=== PATIENT | male | born 1995 | race Caucasian/White ===

== ENCOUNTER 2019-03-07 02:13 | Emergency (ER) | payer OTHER ==
[2019-03-07] MEDS ORDERED: Acetaminophen 500 MG Tab PO ONE (02:36)
--- NOTE | 2019-03-07 02:36 | EDM.PDOC ---
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 He says that about a week ago he started having body aches and feeling like he was getting something but did not really have any large symptoms until the last 24 hours with a cough sore throat and increased body aches. He says he felt hot but he does not have a thermometer to take his temperature. He has been using [id number] Theraflu. He does not have a local provider but denies any pre-existing medical problems. He says he has been pushing fluids and his urine has been very clear and he has had no diarrhea is no chest pain shortness of breath or abdominal pain. The patient says he did have a tonsillectomy and adenoidectomy as a child Review of systems: As per history of present illness and below otherwise all systems reviewed and negative. Past medical history: As per history of present illness and as reviewed below otherwise noncontributory. Surgical history: As per history of present illness and as reviewed below otherwise noncontributory. Social history: No reported history of drug or alcohol abuse. Family history: As per history of present illness and as reviewed below otherwise noncontributory. Physical exam: HEENT: Atraumatic, normocephalic, pupils reactive, negative for conjunctival pallor or scleral icterus, mucous membranes moist, throat clear of exudates but there is posterior oropharyngeal erythema, there is no cervical adenopathy or nuchal rigidity, neck supple, nontender, trachea midline. Lungs: Clear to auscultation, breath sounds equal bilaterally, chest nontender. No wheezing stridor or work of breathing Heart: S1S2, regular rhythm and slightly tachycardic rate, my evaluation no overt murmurs Abdomen: Soft, nondistended, nontender. Negative for masses or hepatosplenomegaly. NABS Pelvis: Deferred Genitourinary: Deferred. Rectal: Deferred. Extremities: Atraumatic, no edema full range of motion Neurovascular unremarkable. Neuro: Awake, alert, oriented. Cranial nerves II through XII unremarkable. Cerebellum unremarkable. Motor and sensory unremarkable throughout. Exam nonfocal. Diagnostics: Influenza RSV Therapeutics: Tylenol Impression: Viral illness Definitive disposition and diagnosis as appropriate pending reevaluation and review of above. Generalized Pain Score (Numeric/FACES): 4 - Related Data Allergies Allergy/AdvReac Type Severity Reaction Status Date / Time No Known Allergies Allergy Verified 03/07/19 02:21 Home Meds: Home Meds . [No Known Home Meds] 03/07/19 [History] Past Medical History Cardiovascular History: Reports: None Respiratory History: Reports: None Gastrointestinal History: Reports: Irritable Bowel Syndrome Psychiatric History: Reports: Anxiety - Past Surgical History HEENT Surgical History: Reports: Adenoidectomy, Tonsillectomy Social & Family History - Tobacco Use Smoking Status *Q: Current Every Day Smoker Years of Tobacco use: 8 Packs/Tins Daily: 1 - Recreational Drug Use Recreational Drug Use: Yes ED ROS GENERAL - Review of Systems Review Of Systems: ROS reveals no pertinent complaints other than HPI. ED EXAM, GENERAL - Physical Exam Exam: See Below (See dictation) Course - Vital Signs Last Recorded V/S: Last Vital Signs Temp 38.2 C H 03/07/19 02:43 Pulse 112 H 03/07/19 02:17 Resp BP 139/78 03/07/19 02:17 Pulse Ox 95 03/07/19 02:17 - Orders/Labs/Meds Orders: Active Orders 24 hr Category Date Time Status CULTURE STREP A CONFIRMATION [] Stat Lab 03/07/19 02:30 Results STREP SCRN A RAPID W CULT CONF [] Stat Lab 03/07/19 02:30 Results Meds: Medications Discontinued Medications Generic Name Dose Route Start Last Admin Trade Name Freq PRN Reason Stop Dose Admin Acetaminophen 1,000 mg 03/07/19 02:36 03/07/19 02:43 Tylenol Extra Strength PO 03/07/19 02:37 1,000 mg ONETIME ONE Administration Departure - Departure Time of Disposition: 03:02 Disposition: Home, Self-Care 01 Condition: Good Clinical Impression: Viral illness - Discharge Information Referrals: PCP,None [Primary Care Provider] - Forms: ED Department Discharge Additional Instructions: The following information is given to patients seen in the emergency department who are being discharged to home. This information is to outline your options for follow-up care. We provide all patients seen in our emergency department with a follow-up referral. The need for follow-up, as well as the timing and circumstances, are variable depending upon the specifics of your emergency department visit. If you don't have a primary care physician on staff, we will provide you with a referral. We always advise you to contact your personal physician following an emergency department visit to inform them of the circumstance of the visit and for follow-up with them and/or the need for any referrals to a consulting specialist. The emergency department will also refer you to a specialist when appropriate. This referral assures that you have the opportunity for followup care with a specialist. All of these measure are taken in an effort to provide you with optimal care, which includes your followup. Under all circumstances we always encourage you to contact your private physician who remains a resource for coordinating your care. When calling for followup care, please make the office aware that this follow-up is from your recent emergency room visit. If for any reason you are refused follow-up, please contact the [facility] emergency department at and ask to speak to the emergency department charge nurse. [facility] Primary care- Internal Medicine and Family [address] [address] Push hydration such as water juices and Gatorade and use [id number] Tylenol or ibuprofen for fever and body aches. Please call and schedule a follow -up appointment in our clinic for reevaluation and further care using the resources given to above. Return to ER as needed and as discussed - My Orders Last 24 Hours: My Active Orders 03/07/19 02:30 CULTURE STREP A CONFIRMATION [RM] Stat STREP SCRN A RAPID W CULT CONF [] Stat - Assessment/Plan Last 24 Hours: My Active Orders 03/07/19 02:30 CULTURE STREP A CONFIRMATION [RM] Stat STREP SCRN A RAPID W CULT CONF [RM] Stat
== END 2019-03-07 03:10 | disposition home or self-care (01) ==
LOC: MW.ED 02:13
DX: B34.9 Viral infection, unspecified (principal); F17.210 Nicotine dependence, cigarettes, uncomplicated
CPT/HCPCS: 87081; 87804; 87880; 99283; A9270; 99282

== ENCOUNTER 2020-04-27 07:46 | Emergency (ER) | payer OTHER ==
[2020-04-27] MEDS ORDERED: Diazepam 5 MG Tab PO ONE (08:04)
[2020-04-27] MEDS ORDERED: Ketorolac 15 MG/ML SDV IVPUSH ONE (08:08)
--- NOTE | 2020-04-27 08:19 | EDM.PDOC ---
ED [facility] GENERAL MEDICAL PROBLEM - General Chief Complaint: Respiratory Problem Stated Complaint: SHORTNESS OF BREATH, PAIN IN BACK Time Seen by Provider: 04/27/20 07:48 - History of Present Illness INITIAL COMMENTS - FREE TEXT/NARRATIVE: HISTORY AND PHYSICAL: History of present illness: 24-year-old male with a past medical history of anxiety and depression, tobacco dependence smoking a pack and a half a day, presents emergency department with right-sided pleuritic type chest pain. The patient states that the chest pain began yesterday evening. It is worse with taking a deep breath. It hurts with movement. He has never experienced this before. He has a strong family history of heart disease. He is unsure if there is any clotting disorder in his family. This is never happened to him before and it is causing him severe distress. He denies any hemoptysis, fever, nausea or vomiting. No diaphoresis. He does report that the pain sometimes goes to his left arm and hand. Review of systems: A 10-point review of systems, other than pertinent positives and negatives as stated per HPI, is otherwise negative. Past medical history: As per history of present illness and as reviewed below otherwise noncontributory. Surgical history: As per history of present illness and as reviewed below otherwise noncontributory. Social history: No reported history of drug or alcohol abuse. Family history: As per history of present illness and as reviewed below otherwise noncontributory. Physical exam: VITAL SIGNS: Reviewed. GENERAL: Appears to be in mild to moderate distress. Is very nervous about this. HEAD: No signs of head trauma. EYES: Pupils are equal. Extraocular motions intact. EARS: Hearing grossly intact. MOUTH: Oropharynx is normal. NECK: No adenopathy, no JVD. CHEST: Chest with clear breath sounds bilaterally. No wheezes, rales, or rhonchi. CARDIAC: Regular rate and rhythm. Normal S1 and S2, without murmurs, gallops, or rubs. VASCULAR: Peripheral pulses normal and equal in all extremities. ABDOMEN: Soft, without detectable tenderness. No sign of distention. No rebound or guarding, and no masses palpated. MUSCULOSKELETAL: Good range of motion of all major joints. Extremities without clubbing, cyanosis or edema. NEUROLOGIC EXAM: Alert and oriented x 3. No focal sensory or motor deficits. Speech normal. Follows commands. PSYCHIATRIC: Mood normal. SKIN: No rash or lesions. Initial Differential Diagnosis & Plan: Differential diagnosis includes acute myocardial infarction, pulmonary embolism , aortic dissection, pneumothorax, and esophageal rupture. Cardiac enzymes and EKG will be done for the possibility of myocardial infarction as well as pericarditis and myocarditis. Chest x-ray will be done to screen for pneumonia or pneumothorax. Pulmonary embolism risk factors were queried And the patient does smoke. Unclear if there is a family history. There is no cancer or calf tenderness history. No recent trauma or surgery. No personal history of DVT. No hypercoagulability per past medical history. No recent immobility. The patient is very nervous about this and became lightheaded when we talked about him receiving an IV/blood draw. Given this I will give Valium orally. We will establish an IV, take labs, test for a d-dimer elevation with the labs. And give Toradol for his pleuritic symptoms. His lungs are clear and there is no evidence of pneumonia. He may require chest CT if the cause is not clear or if his vital signs continue be slightly abnormal. Definitive disposition and diagnosis as appropriate pending reevaluation and review of above. right rib cage Pain Score (Numeric/FACES): 6 - Related Data Allergies Allergy/AdvReac Type Severity Reaction Status Date / Time No Known Allergies Allergy Verified 04/27/20 07:53 Home Meds: Home Meds Escitalopram Oxalate [Lexapro] 04/27/20 [History] Omeprazole 40 mg PO QPM #30 capsule. 04/27/20 [Rx] Sulindac [Clinoril] 200 mg PO BIDMEALS #60 tab 04/27/20 [Rx] Past Medical History Cardiovascular History: Reports: None Respiratory History: Reports: None Gastrointestinal History: Reports: Irritable Bowel Syndrome Psychiatric History: Reports: Anxiety - Past Surgical History HEENT Surgical History: Reports: Adenoidectomy, Tonsillectomy Social & Family History - Tobacco Use Smoking Status *Q: Current Every Day Smoker Years of Tobacco use: 9 Packs/Tins Daily: 1 - Caffeine Use Caffeine Use: Reports: None - Recreational Drug Use Recreational Drug Use: No ED ROS GENERAL - Review of Systems Review Of Systems: See Below (noted) ED EXAM, GENERAL - Physical Exam Exam: See Below (noted) ED RESPIRATORY PROCEDURES - Additional/Other Procedure(s) Other (Free Text) Procedure(s): Procedure Note: Point of Care Bedside Echocardiogram (limited echo) Self-performed and read; images printed for archival Location: Chest Indication: Trauma Probe: phased array - Cardiac contour identified - No obvious wall motion abnormalities - No obvious cardiomegaly - No pericardial fluid seen. No Tamponade Impression: 1. No tamponade or effusion Signed by: Samson Vela MD EKG INTERPRETATION EKG Interpretation Comments: 12 lead EKG interpretation Obtained: April 27, 2020 8:17 AM Rhythm: Sinus Rate: 70 [place]: Normal Intervals: Normal ST/T Segments: Diffuse ST changes. Questionable elevated IA interval in aVR. Interpretation: Sinus rhythm with diffuse ST changes and questionable elevated IA interval in aVR. Possibly represents pericarditis. Given the appearance of the EKG pericarditis is moved up as a possible cause of the patient's pain on my differential. Course - Vital Signs Last Recorded V/S: Last Vital Signs Temp 97.0 F 04/27/20 07:51 Pulse 91 04/27/20 07:51 Resp 16 04/27/20 07:51 BP 138/90 04/27/20 07:51 Pulse Ox 100 04/27/20 07:51 - Orders/Labs/Meds Orders: Active Orders 24 hr Category Date Time Status EKG 12 Lead [EKG Documentation Completion] [RC] STAT Care 04/27/20 08:07 Active Labs: Laboratory Tests 04/27/20 04/27/20 04/27/20 Range/Units 08:51 08:51 08:51 WBC 9.42 (4.0-11.0) K/uL RBC 4.74 (4.50-5.90) M/uL Hgb 14.2 (13.0-17.0) g/dL Hct 43.3 (38.0-50.0) % MCV 91.4 (80.0-98.0) fL MCH 30.0 (27.0-32.0) pg MCHC 32.8 (31.0-37.0) g/dL RDW Std Deviation 43.2 (28.0-62.0) fl RDW Coeff of Eda 13 (11.0-15.0) % Plt Count 254 (150-400) K/uL MPV 10.80 (7.40-12.00) fL Neut % (Auto) 64.0 (48.0-80.0) % Lymph % (Auto) 25.6 (16.0-40.0) % Irion % (Auto) 7.3 (0.0-15.0) % Eos % (Auto) 3.0 (0.0-7.0) % Baso % (Auto) 0.1 (0.0-1.5) % Neut # (Auto) 6.0 H (1.4-5.7) K/uL Lymph # (Auto) 2.4 (0.6-2.4) K/uL Irion # (Auto) 0.7 (0.0-0.8) K/uL Eos # (Auto) 0.3 (0.0-0.7) K/uL Baso # (Auto) 0.0 (0.0-0.1) K/uL Nucleated RBC % 0.0 /100WBC Nucleated RBCs # 0 K/uL D-Dimer, Quantitative < 0.19 (0.0-0.50) mg/L FEU Sodium 139 (136-148) mmol/L Potassium 3.7 (3.5-5.1) mmol/L Chloride 104 (98-107) mmol/L Carbon Dioxide 24.9 (21.0-32.0) mmol/L BUN 14 (7.0-18.0) mg/dL Creatinine 1.1 (0.8-1.3) mg/dL Est Cr Clr Drug Dosing 102.66 mL/min Estimated GFR (MDRD) > 60.0 ml/min Glucose 96 (74-106) mg/dL Calcium 8.8 (8.5-10.1) mg/dL Total Bilirubin 0.2 (0.2-1.0) mg/dL AST 21 (15-37) IU/L ALT 56 (14-63) IU/L Alkaline Phosphatase 82 (46-116) U/L Troponin I < 0.050 (0.000-0.056) ng/mL Total Protein 7.9 (6.4-8.2) g/dL Albumin 4.2 (3.4-5.0) g/dL Globulin 3.7 (2.6-4.0) g/dL Albumin/Globulin Ratio 1.1 (0.9-1.6) Urine Color Urine Appearance Urine pH (5.0-8.0) Ur Specific [place] (1.001-1.035) Urine Protein (NEGATIVE) mg/dL Urine Glucose (UA) (NEGATIVE) mg/dL Urine Ketones (NEGATIVE) mg/dL Urine Occult Blood (NEGATIVE) Urine Nitrite (NEGATIVE) Urine Bilirubin (NEGATIVE) Urine Urobilinogen (<2.0) EU/dL Ur Leukocyte Esterase (NEGATIVE) 04/27/20 Range/Units 09:13 WBC (4.0-11.0) K/uL RBC (4.50-5.90) M/uL Hgb (13.0-17.0) g/dL Hct (38.0-50.0) % MCV (80.0-98.0) fL MCH (27.0-32.0) pg MCHC (31.0-37.0) g/dL RDW Std Deviation (28.0-62.0) fl RDW Coeff of Ead (11.0-15.0) % Plt Count (150-400) K/uL MPV (7.40-12.00) fL Neut % (Auto) (48.0-80.0) % Lymph % (Auto) (16.0-40.0) % Irion % (Auto) (0.0-15.0) % Eos % (Auto) (0.0-7.0) % Baso % (Auto) (0.0-1.5) % Neut # (Auto) (1.4-5.7) K/uL Lymph # (Auto) (0.6-2.4) K/uL Irion # (Auto) (0.0-0.8) K/uL Eos # (Auto) (0.0-0.7) K/uL Baso # (Auto) (0.0-0.1) K/uL Nucleated RBC % /100WBC Nucleated RBCs # K/uL D-Dimer, Quantitative (0.0-0.50) mg/L FEU Sodium (136-148) mmol/L Potassium (3.5-5.1) mmol/L Chloride (98-107) mmol/L Carbon Dioxide (21.0-32.0) mmol/L BUN (7.0-18.0) mg/dL Creatinine (0.8-1.3) mg/dL Est Cr Clr Drug Dosing mL/min Estimated GFR (MDRD) ml/min Glucose (74-106) mg/dL Calcium (8.5-10.1) mg/dL Total Bilirubin (0.2-1.0) mg/dL AST (15-37) IU/L ALT (14-63) IU/L Alkaline Phosphatase (46-116) U/L Troponin I (0.000-0.056) ng/mL Total Protein (6.4-8.2) g/dL Albumin (3.4-5.0) g/dL Globulin (2.6-4.0) g/dL Albumin/Globulin Ratio (0.9-1.6) Urine Color YELLOW Urine Appearance CLEAR Urine pH 6.5 (5.0-8.0) Ur Specific [place] 1.015 (1.001-1.035) Urine Protein NEGATIVE (NEGATIVE) mg/dL Urine Glucose (UA) NEGATIVE (NEGATIVE) mg/dL Urine Ketones NEGATIVE (NEGATIVE) mg/dL Urine Occult Blood NEGATIVE (NEGATIVE) Urine Nitrite NEGATIVE (NEGATIVE) Urine Bilirubin NEGATIVE (NEGATIVE) Urine Urobilinogen 0.2 (<2.0) EU/dL Ur Leukocyte Esterase NEGATIVE (NEGATIVE) Meds: Medications Discontinued Medications Generic Name Dose Route Start Last Admin Trade Name Freq PRN Reason Stop Dose Admin Diazepam 10 mg 04/27/20 08:04 04/27/20 08:23 Valium. PO 04/27/20 08:05 10 mg ONETIME ONE Administration Ketorolac Tromethamine 15 mg 04/27/20 08:08 04/27/20 08:56 Toradol IVPUSH 04/27/20 08:09 10 mg ONETIME ONE Administration - Re-Assessments/Exams Free Text/Narrative Re-Assessment/Exam: 04/27/20 09:40 After I saw the abnormal EKG I discussed with the patient some of his symptoms. He feels better sitting up in a forward position and worse laying back on the bed. He is feeling much better after intravenous Toradol. His labs are otherwise essentially normal. His d-dimer is negative. His troponin is negative. There is no evidence of myocarditis. I feel this is consistent with pericarditis. I will start him on NSAIDs and a PPI as an outpatient. I will attempt to perform a bedside echo but we have limited equipment at this facility and no phased-array probe. My diagnostic impression: 1. Pericarditis 2. Pleurisy Follow-up with primary care, outpatient echo, NSAIDs, PPI Departure - Departure Time of Disposition: 09:42 Disposition: Home, Self-Care 01 Clinical Impression: Pericarditis, Pleurisy - Discharge Information *PRESCRIPTION DRUG MONITORING PROGRAM REVIEWED*: Not Applicable *COPY OF PRESCRIPTION DRUG MONITORING REPORT IN PATIENT RASHID: Not Applicable Prescriptions: Omeprazole 40 mg PO QPM #30 capsule.dr Mabry [Clinoril] 200 mg PO BIDMEALS #60 tab Instructions: Pericarditis, Pleurisy, [id number] Referrals: PCP,None [Primary Care Provider] - [facility] [Outside] [facility] [Outside] Forms: ED Department Discharge Additional Instructions: The following information is given to patients seen in the emergency department who are being discharged to home. This information is to outline your options for follow-up care. We provide all patients seen in our emergency department with a follow-up referral. The need for follow-up, as well as the timing and circumstances, are variable depending upon the specifics of your emergency department visit. If you don't have a primary care physician on staff, we will provide you with a referral. We always advise you to contact your personal physician following an emergency department visit to inform them of the circumstance of the visit and for follow-up with them and/or the need for any referrals to a consulting specialist. The emergency department will also refer you to a specialist when appropriate. This referral assures that you have the opportunity for follow-up care with a specialist. All of these measure are taken in an effort to provide you with optimal care, which includes your follow-up. Under all circumstances we always encourage you to contact your private physician who remains a resource for coordinating your care. When calling for follow-up care, please make the office aware that this follow-up is from your recent emergency room visit. If for any reason you are refused follow-up, please contact the [facility] Emergency Department at and asked to speak to the emergency department charge nurse. Thank you for coming to the [facility] emergency department. It was my pleasure to take care of you today. Your EKG and clinical presentation is consistent with pericarditis. You also have clinical symptoms of pleurisy. These conditions are inflammation of the lining of the heart and the lining of the lung. This can happen from a viral upper respiratory tract infection, bacterial upper respiratory tract infection, ingestion of smoke or other pollutants, and other conditions. 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 You do not have conditions or findings consistent with myocarditis. This would be a more serious infection or inflammation of the heart tissue. Your troponin testing (heart attack blood test) and your d-dimer (blood clot blood test) are normal today. The rest of your labs are also essentially normal today. Please return to the emergency department if you have uncontrolled pain, shortness of breath, worsening symptoms, fever or any other concerns. We are always happy to see you. [facility] - Cardiology [address] [place] [id number] [facility] - Internal Medicine [address] [place] [id number] Sepsis Event Note - Evaluation Sepsis Screening Result: No Definite Risk - Focused Exam Vital Signs: Vital Signs Temp Pulse Resp BP Pulse Ox 04/27/20 07:51 97.0 F 91 16 138/90 100 Date Exam was Performed: 04/27/20 Time Exam was Performed: 10:20 - My Orders Last 24 Hours: My Active Orders 04/27/20 08:07 EKG 12 Lead [EKG Documentation Completion] [RC] STAT - Assessment/Plan Last 24 Hours: My Active Orders 04/27/20 08:07 EKG 12 Lead [EKG Documentation Completion] [RC] STAT
--- NOTE | 2020-04-27 08:51 | CR ---
Chest: 2 views of the chest were obtained. Comparison: No prior chest imaging is available. Heart size and mediastinum are normal. Lungs are clear with no acute parenchymal change. Bony structures are within normal limits. Impression: 1. Nothing acute is appreciated on 2 view chest x-ray. Diagnostic code #1 This report was dictated in MDT
[2020-04-27 09:23] LABS: BLOOD UREA NITROGEN,BUN 14 mg/dL (7.0-18.0); CARBON DIOXIDE,CO2 24.9 mmol/L (21.0-32.0); CHLORIDE,CL 104 mmol/L (98-107); GLUCOSE RANDOM 96 mg/dL (74-106); POTASSIUM,K 3.7 mmol/L (3.5-5.1); SODIUM,NA 139 mmol/L (136-148)
== END 2020-04-27 10:21 | disposition home or self-care (01) ==
LOC: MW.ED 07:46
DX: I31.9 Disease of pericardium, unspecified (principal); R09.1 Pleurisy; F17.210 Nicotine dependence, cigarettes, uncomplicated; F41.9 Anxiety disorder, unspecified; F32.9 Major depressive disorder, single episode, unspecified; Z79.899 Other long term (current) drug therapy
CPT/HCPCS: 36415; 71046; 80053; 81003; 84484; 85025; 85379; 93005; 96374; 99285; A9270; J1885; 99283

== ENCOUNTER 2020-05-31 17:52 | Emergency (ER) | payer OTHER ==
[2020-05-31] MEDS ORDERED: Ketorolac 30 MG/ML SDV IVPUSH ONE (18:10)
[2020-05-31] MEDS ORDERED: Sodium Chloride 0.9% 1,000 ML IV ONE (18:10)
[2020-05-31] MEDS ORDERED: Ondansetron 4 MG/2 ML SDV IVPUSH ONE (18:15)
--- NOTE | 2020-05-31 18:15 | EDM.PDOC ---
ED HPI GENERAL MEDICAL PROBLEM - General Chief Complaint: General Stated Complaint: NOT FEELING WELL Time Seen by Provider: 05/31/20 18:15 Source of Information: Reports: Patient History Limitations: Reports: No Limitations - History of Present Illness INITIAL COMMENTS - FREE TEXT/NARRATIVE: HISTORY AND PHYSICAL: History of present illness: Patient is a 24-year-old male who presents to the emergency room with complaints of fatigue, nausea, diarrhea and generalized body aches since Friday. 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 On Friday night he started to have generalized body aches which have progressively gotten worse. He feels overly tired, feels lightheaded and has had several bouts of nausea and diarrhea. Patient denies any fever, chills, headache, change in vision, syncope or near syncope. Denies any chest pain, back pain, shortness of breath or cough. Denies any abdominal pain, vomiting, constipation or dysuria. Has not noted any blood in urine or stool. Patient has been eating and drinking appropriately. He denies any recent travel or exposure to anyone who is been ill. Review of systems: As per history of present illness and below otherwise all systems reviewed and negative. Past medical history: As per history of present illness and as reviewed below otherwise noncontributory. Surgical history: As per history of present illness and as reviewed below otherwise noncontributory. Social history: See social history for further information Family history: As per history of present illness and as reviewed below otherwise noncontributory. Physical exam: General: Well-developed and well-nourished 24-year-old male. Alert and oriented. Nontoxic-appearing and in no acute distress. HEENT: Atraumatic, normocephalic, pupils equal and reactive bilaterally, negative for conjunctival pallor or scleral icterus, mucous membranes moist, TMs normal bilaterally, throat clear, neck supple, nontender, trachea midline. No drooling or trismus noted. No meningeal signs. No hot potato voice noted. Lungs: Clear to auscultation, breath sounds equal bilaterally, chest nontender. Heart: S1S2, regular rate and rhythm without overt murmur Abdomen: Soft, nondistended, nontender. Negative for masses or hepatosplenom egaly. Negative for costovertebral tenderness. Skin: Intact, warm, dry. No lesions or rashes noted. Extremities: Atraumatic, moves all extremities per self without difficulty or deficits, negative for cords or calf pain. Neurovascular unremarkable. Neuro: Awake, alert, oriented. Cranial nerves II through XII unremarkable. Cerebellum unremarkable. Motor and sensory unremarkable throughout. Exam non focal. Notes: EKG compared with 04/27/2020 shows no changes. Sinus rhythm with rate of 60. Lab work is unremarkable. Vital signs remained stable. Patient states he does feel improved after fluids and medications. We discussed signs and symptoms that would prompt him to return to the emergency room. Follow-up and supportive care measures were reviewed and discussed. Voices understanding and is agreeable to plan of care. Denies any further questions or concerns at this time. Diagnostics: CBC, CMP, UA, CPK, EKG Therapeutics: IV fluid, Zofran, Toradol Prescription: None Impression: Malaise Plan: 1. Please use Tylenol and/or Ibuprofen as needed for pain and fever management. 2. Get plenty of Rest. Encourage fluids to prevent dehydration. 3. Please follow up with your primary care provider. Return to the ED as needed as discussed. Definitive disposition and diagnosis as appropriate pending reevaluation and review of above. - Related Data Allergies Allergy/AdvReac Type Severity Reaction Status Date / Time No Known Allergies Allergy Verified 05/31/20 18:08 Home Meds: Home Meds . [No Known Home Meds] 05/31/20 [History] Past Medical History Cardiovascular History: Reports: None Respiratory History: Reports: None Gastrointestinal History: Reports: Irritable Bowel Syndrome Psychiatric History: Reports: Anxiety - Past Surgical History HEENT Surgical History: Reports: Adenoidectomy, Tonsillectomy Social & Family History - Caffeine Use Caffeine Use: Reports: None ED ROS GENERAL - Review of Systems Review Of Systems: Comprehensive ROS is negative, except as noted in HPI. ED EXAM, GENERAL - Physical Exam Exam: See Below (See dictation) Course - Vital Signs Last Recorded V/S: Last Vital Signs Temp 98.4 F 05/31/20 18:05 Pulse 70 05/31/20 18:05 Resp 17 05/31/20 18:05 BP 129/77 05/31/20 18:05 Pulse Ox 98 05/31/20 18:05 - Orders/Labs/Meds Orders: Active Orders 24 hr Category Date Time Status EKG Documentation Completion [RC] STAT Care 05/31/20 18:10 Active Labs: Laboratory Tests 05/31/20 05/31/20 05/31/20 Range/Units 18:13 18:13 18:34 WBC 8.64 (4.0-11.0) K/uL RBC 4.56 (4.50-5.90) M/uL Hgb 13.8 (13.0-17.0) g/dL Hct 41.3 (38.0-50.0) % MCV 90.6 (80.0-98.0) fL MCH 30.3 (27.0-32.0) pg MCHC 33.4 (31.0-37.0) g/dL RDW Std Deviation 41.9 (28.0-62.0) fl RDW Coeff of Eda 13 (11.0-15.0) % Plt Count 239 (150-400) K/uL MPV 11.10 (7.40-12.00) fL Neut % (Auto) 56.3 (48.0-80.0) % Lymph % (Auto) 35.2 (16.0-40.0) % Harvey % (Auto) 6.8 (0.0-15.0) % Eos % (Auto) 1.6 (0.0-7.0) % Baso % (Auto) 0.1 (0.0-1.5) % Neut # (Auto) 4.9 (1.4-5.7) K/uL Lymph # (Auto) 3.0 H (0.6-2.4) K/uL Harvey # (Auto) 0.6 (0.0-0.8) K/uL Eos # (Auto) 0.1 (0.0-0.7) K/uL Baso # (Auto) 0.0 (0.0-0.1) K/uL Nucleated RBC % 0.0 /100WBC Nucleated RBCs # 0 K/uL Sodium (136-148) mmol/L Potassium (3.5-5.1) mmol/L Chloride (98-107) mmol/L Carbon Dioxide (21.0-32.0) mmol/L BUN (7.0-18.0) mg/dL Creatinine (0.8-1.3) mg/dL Est Cr Clr Drug Dosing mL/min Estimated GFR (MDRD) ml/min Glucose (74-106) mg/dL Calcium (8.5-10.1) mg/dL Total Bilirubin (0.2-1.0) mg/dL AST (15-37) IU/L ALT (14-63) IU/L Alkaline Phosphatase (46-116) U/L Creatine Kinase (26-308) U/L Total Protein (6.4-8.2) g/dL Albumin (3.4-5.0) g/dL Globulin (2.6-4.0) g/dL Albumin/Globulin Ratio (0.9-1.6) Urine Color YELLOW Urine Appearance CLEAR Urine pH 6.0 (5.0-8.0) Ur Specific [place] 1.025 (1.001-1.035) Urine Protein NEGATIVE (NEGATIVE) mg/dL Urine Glucose (UA) NEGATIVE (NEGATIVE) mg/dL Urine Ketones NEGATIVE (NEGATIVE) mg/dL Urine Occult Blood NEGATIVE (NEGATIVE) Urine Nitrite NEGATIVE (NEGATIVE) Urine Bilirubin NEGATIVE (NEGATIVE) Urine Urobilinogen 0.2 (<2.0) EU/dL Ur Leukocyte Esterase NEGATIVE (NEGATIVE) Urine Opiates Screen NEGATIVE (NEGATIVE) Ur Oxycodone Screen NEGATIVE (NEGATIVE) Urine Methadone Screen NEGATIVE (NEGATIVE) Ur Barbiturates Screen NEGATIVE (NEGATIVE) Ur Phencyclidine Scrn NEGATIVE (NEGATIVE) Ur Amphetamine Screen NEGATIVE (NEGATIVE) U Methamphetamines Scrn NEGATIVE (NEGATIVE) U Benzodiazepines Scrn NEGATIVE (NEGATIVE) U Cocaine Metab Screen NEGATIVE (NEGATIVE) U Marijuana (THC) Screen NEGATIVE (NEGATIVE) 05/31/20 Range/Units 18:34 WBC (4.0-11.0) K/uL RBC (4.50-5.90) M/uL Hgb (13.0-17.0) g/dL Hct (38.0-50.0) % MCV (80.0-98.0) fL MCH (27.0-32.0) pg MCHC (31.0-37.0) g/dL RDW Std Deviation (28.0-62.0) fl RDW Coeff of Eda (11.0-15.0) % Plt Count (150-400) K/uL MPV (7.40-12.00) fL Neut % (Auto) (48.0-80.0) % Lymph % (Auto) (16.0-40.0) % Harvey % (Auto) (0.0-15.0) % Eos % (Auto) (0.0-7.0) % Baso % (Auto) (0.0-1.5) % Neut # (Auto) (1.4-5.7) K/uL Lymph # (Auto) (0.6-2.4) K/uL Harvey # (Auto) (0.0-0.8) K/uL Eos # (Auto) (0.0-0.7) K/uL Baso # (Auto) (0.0-0.1) K/uL Nucleated RBC % /100WBC Nucleated RBCs # K/uL Sodium 141 (136-148) mmol/L Potassium 3.6 (3.5-5.1) mmol/L Chloride 104 (98-107) mmol/L Carbon Dioxide 26.8 (21.0-32.0) mmol/L BUN 10 (7.0-18.0) mg/dL Creatinine 1.2 (0.8-1.3) mg/dL Est Cr Clr Drug Dosing 94.10 mL/min Estimated GFR (MDRD) > 60.0 ml/min Glucose 88 (74-106) mg/dL Calcium 9.1 (8.5-10.1) mg/dL Total Bilirubin 0.4 (0.2-1.0) mg/dL AST 17 (15-37) IU/L ALT 29 (14-63) IU/L Alkaline Phosphatase 85 (46-116) U/L Creatine Kinase 128 (26-308) U/L Total Protein 7.8 (6.4-8.2) g/dL Albumin 4.4 (3.4-5.0) g/dL Globulin 3.4 (2.6-4.0) g/dL Albumin/Globulin Ratio 1.3 (0.9-1.6) Urine Color Urine Appearance Urine pH (5.0-8.0) Ur Specific [place] (1.001-1.035) Urine Protein (NEGATIVE) mg/dL Urine Glucose (UA) (NEGATIVE) mg/dL Urine Ketones (NEGATIVE) mg/dL Urine Occult Blood (NEGATIVE) Urine Nitrite (NEGATIVE) Urine Bilirubin (NEGATIVE) Urine Urobilinogen (<2.0) EU/dL Ur Leukocyte Esterase (NEGATIVE) Urine Opiates Screen (NEGATIVE) Ur Oxycodone Screen (NEGATIVE) Urine Methadone Screen (NEGATIVE) Ur Barbiturates Screen (NEGATIVE) Ur Phencyclidine Scrn (NEGATIVE) Ur Amphetamine Screen (NEGATIVE) U Methamphetamines Scrn (NEGATIVE) U Benzodiazepines Scrn (NEGATIVE) U Cocaine Metab Screen (NEGATIVE) U Marijuana (THC) Screen (NEGATIVE) Meds: Medications Discontinued Medications Generic Name Dose Route Start Last Admin Trade Name Freq PRN Reason Stop Dose Admin Sodium Chloride 1,000 mls @ 999 mls/hr 05/31/20 18:10 05/31/20 18:34 Normal Saline IV 05/31/20 19:10 999 mls/hr STAT ONE Administration Ketorolac Tromethamine 30 mg 05/31/20 18:10 05/31/20 18:38 Toradol IVPUSH 05/31/20 18:11 30 mg ONETIME ONE Administration Ondansetron HCl 4 mg 05/31/20 18:15 05/31/20 18:37 Zofran IVPUSH 05/31/20 18:16 4 mg ONETIME ONE Administration Departure - Departure Time of Disposition: 19:36 Disposition: Home, Self-Care 01 Clinical Impression: Malaise - Discharge Information Instructions: Fatigue Referrals: PCP,None [Primary Care Provider] - Forms: ED Department Discharge Additional Instructions: The following information is given to patients seen in the emergency department who are being discharged to home. This information is to outline your options for follow-up care. We provide all patients seen in our emergency department with a follow-up referral. The need for follow-up, as well as the timing and circumstances, are variable depending upon the specifics of your emergency department visit. If you don't have a primary care physician on staff, we will provide you with a referral. We always advise you to contact your personal physician following an emergency department visit to inform them of the circumstance of the visit and for follow-up with them and/or the need for any referrals to a consulting specialist. The emergency department will also refer you to a specialist when appropriate. This referral assures that you have the opportunity for follow-up care with a specialist. All of these measure are taken in an effort to provide you with optimal care, which includes your follow-up. Under all circumstances we always encourage you to contact your private physician who remains a resource for coordinating your care. When calling for follow-up care, please make the office aware that this follow-up is from your recent emergency room visit. If for any reason you are refused follow-up, please contact the [facility] Emergency Department at and asked to speak to the emergency department charge nurse. [facility] [address] [place] [id number] [facility] [address] [place] [phone] Thank you for choosing the [facility] emergency department in [place] for your medical needs today. It was a pleasure caring for you. You were seen in the emergency department for fatigue. Your lab work, EKG and vital signs are all within normal limits. 1. Please use Tylenol and/or Ibuprofen as needed for pain and fever management. 2. Get plenty of Rest. Encourage fluids to prevent dehydration. 3. Please follow up with your primary care provider. Return to the ED as needed as discussed. Sepsis Event Note (ED) - Focused Exam Vital Signs: Vital Signs Temp Pulse Resp BP Pulse Ox 05/31/20 18:05 98.4 F 70 17 129/77 98 - My Orders Last 24 Hours: My Active Orders 05/31/20 18:10 EKG Documentation Completion [RC] STAT - Assessment/Plan Last 24 Hours: My Active Orders 05/31/20 18:10 EKG Documentation Completion [RC] STAT
[2020-05-31 19:32] LABS: BLOOD UREA NITROGEN,BUN 10 mg/dL (7.0-18.0); CARBON DIOXIDE,CO2 26.8 mmol/L (21.0-32.0); CHLORIDE,CL 104 mmol/L (98-107); GLUCOSE RANDOM 88 mg/dL (74-106); POTASSIUM,K 3.6 mmol/L (3.5-5.1); SODIUM,NA 141 mmol/L (136-148)
== END 2020-05-31 19:45 | disposition home or self-care (01) ==
LOC: MW.ED 17:52
DX: R53.81 Other malaise (principal)
CPT/HCPCS: 80053; 80305; 81003; 82550; 85025; 93005; 96361; 96374; 96375; 99284; J1885; J2405; J7030; 99283

== ENCOUNTER 2021-02-19 10:36 | Emergency (ER) | payer OTHER ==
--- NOTE | 2021-02-19 10:39 | EDM.PDOC ---
ED HPI GENERAL MEDICAL PROBLEM - General Stated Complaint: SHARP PAIN IN RT TESTICLE Time Seen by Provider: 02/19/21 10:37 Source of Information: Reports: Patient History Limitations: Reports: No Limitations - History of Present Illness INITIAL COMMENTS - FREE TEXT/NARRATIVE: HISTORY AND PHYSICAL: History of present illness: Patient is a 25-year-old male who presents to the emergency room with complaints of right testicular pain that started just prior to arrival. He states he was at work, lifting a heavy box when the pain came on suddenly. He states he dropped the box and came immediately to the emergency room. He has tenderness with palpation of the testy. Does not have any bulging of the low abdomen, umbilicus or groin. Patient denies any fever, chills, headache, change in vision, syncope or near syncope. Denies any chest pain, back pain, shortness of breath or cough. Denies any abdominal pain, nausea, vomiting, diarrhea, constipation or dysuria. Has not noted any blood in urine or stool. Patient has been eating and drinking appropriately. Review of systems: As per history of present illness and below otherwise all systems reviewed and negative. Past medical history: As per history of present illness and as reviewed below otherwise noncontributory. Surgical history: As per history of present illness and as reviewed below otherwise noncontributory. Social history: See social history for further information Family history: As per history of present illness and as reviewed below otherwise noncontributory. Physical exam: General: Well developed and well nourished. Alert and orientated x 3. Nontoxic in appearance and in no acute distress. Vital signs are stable and have been reviewed by me. Nursing notes were reviewed. HEENT: Atraumatic, normocephalic, pupils equal and reactive bilaterally, negative for conjunctival pallor or scleral icterus, mucous membranes moist, TMs normal bilaterally, throat clear, neck supple, nontender, trachea midline. No drooling or trismus noted. No meningeal signs. No hot potato voice noted. Lungs: Clear to auscultation bilaterally. No wheezes, rales, or rhonchi. Chest nontender. Normal work of breathing, no accessory muscles used. Heart: S1S2, regular rate and rhythm without overt murmur, gallops, or rubs. No JVD. No peripheral edema Abdomen: Soft, nondistended, nontender. Normoactive bowel sounds. Negative for masses or costovertebral tenderness. Pelvis: Stable nontender. Genitourinary/Rectal: This was done with consent and a housekeeping lead at the bedside. Normal bilateral descending appearing testes without any erythema or soft tissue swelling. He does have tenderness with palpation of the right testy. No hernias appreciated bilaterally. + Mesenteric reflex. Skin: Intact, warm, dry. No lesions or rashes noted. Hematologic: No petechiae or purpra. Mucosa appropriate color and normal nail bed color and refill. Extremities: Atraumatic, moves all extremities per self without difficulty or deficits, negative for cords or calf pain. Neurovascular unremarkable. Neuro: Awake, alert, oriented. Cranial nerves II through XII unremarkable. Cerebellum unremarkable. Motor and sensory unremarkable throughout. Exam n onfocal. Psychiatric: Mood and affect are appropriate. Normal thought process. Answering questions appropriately. Notes: *This patient was seen and evaluated during the 2019 SARS-CoV-2 novel coronav irus pandemic period. Community viral transmission is ongoing at time of this encounter and the emergency department is operating under pandemic response procedures. Lab work is unremarkable. Three nonspecific rounded, mildly echogenic right testicular masses measuring up to 1.5 cm, 0.6 cm and 0.6 cm in maximal diameter. Question unusual seminoma. Dr Benavides, urologist was consulted, about this p atient. At this point no further treatment is needed but he would like to see the patient for further evaluation and management this week. I have talked with the patient about today's findings, in addition to providing specific details for plan of care. Reassessment at the time of disposition demonstrates that the patient is in no acute distress. The patient is stable for discharge, counseling was provided and we discussed in great detail signs and symptoms that would prompt them to return to the Emergency Department. Medication, follow up and supportive care measures were reviewed and discussed. Voices understanding and is agreeable to plan of care. Denies any further questions or concerns at this time. Diagnostics: CBC, CMP, UA, Testicular U/S Therapeutics: Ibuprofen Prescription: Tramadol, Diclofenac Impression: Testicular Mass Plan: 1. You were evaluated today on an emergent basis. Your lab work was normal. Your ultrasound showed 3 nonspecific masses in your right testicle. Dr Benavides, urologist, would like to see you. 2. You can alternate Tylenol and ibuprofen as needed for pain and fever management. 3. We encourage you to follow up with your primary care provider and/or recommended specialist in the next few days for re-evaluation and further care/management. 4. If your symptoms should worsen, new symptoms develop or any of the signs and symptoms we discussed should arise please return to the emergency room or call 911 (if needed). Definitive disposition and diagnosis as appropriate pending reevaluation and review of above. right testicle Pain Score (Numeric/FACES): 8 - Related Data Allergies Allergy/AdvReac Type Severity Reaction Status Date / Time No Known Allergies Allergy Verified 02/19/21 10:44 Home Meds: Home Meds Diclofenac Sodium [Voltaren] 75 mg PO BIDMEALS PRN #30 tab.cr 02/19/21 [Rx] Sertraline HCl [Zoloft] 50 mg PO DAILY 02/19/21 [History] traMADol [Ultram] 50 mg PO Q4H PRN #15 tab 02/19/21 [Rx] Past Medical History Cardiovascular History: Reports: None Respiratory History: Reports: None Gastrointestinal History: Reports: Irritable Bowel Syndrome Psychiatric History: Reports: Anxiety - Past Surgical History HEENT Surgical History: Reports: Adenoidectomy, Tonsillectomy Social & Family History - Caffeine Use Caffeine Use: Reports: None ED ROS GENERAL - Review of Systems Review Of Systems: Comprehensive ROS is negative, except as noted in HPI. ED EXAM, RENAL/ - Physical Exam Exam: See Below (See dictation) Course - Vital Signs Last Recorded V/S: Last Vital Signs Temp 97.8 F 02/19/21 10:45 Pulse 78 02/19/21 13:23 Resp 18 02/19/21 13:23 BP 124/71 02/19/21 13:23 Pulse Ox 99 02/19/21 13:23 - Orders/Labs/Meds Orders: Active Orders 24 hr Category Date Time Status CHLAMYDIA AND GONORRHEA BY TMA Stat Lab 02/19/21 10:50 Received Labs: Laboratory Tests 02/19/21 02/19/21 02/19/21 Range/Units 10:50 11:05 11:05 WBC 7.77 (4.0-11.0) K/uL RBC 4.84 (4.50-5.90) M/uL Hgb 15.2 (13.0-17.0) g/dL Hct 45.1 (38.0-50.0) % MCV 93.2 (80.0-98.0) fL MCH 31.4 (27.0-32.0) pg MCHC 33.7 (31.0-37.0) g/dL RDW Std Deviation 44.3 (28.0-62.0) fl RDW Coeff of Eda 13 (11.0-15.0) % Plt Count 238 (150-400) K/uL MPV 11.40 (7.40-12.00) fL Neut % (Auto) 64.9 (48.0-80.0) % Lymph % (Auto) 25.6 (16.0-40.0) % [place] % (Auto) 6.9 (0.0-15.0) % Eos % (Auto) 2.3 (0.0-7.0) % Baso % (Auto) 0.3 (0.0-1.5) % Neut # (Auto) 5.0 (1.4-5.7) K/uL Lymph # (Auto) 2.0 (0.6-2.4) K/uL Sullivan # (Auto) 0.5 (0.0-0.8) K/uL Eos # (Auto) 0.2 (0.0-0.7) K/uL Baso # (Auto) 0.0 (0.0-0.1) K/uL Nucleated RBC % 0.0 /100WBC Nucleated RBCs # 0 K/uL Sodium 138 (136-148) mmol/L Potassium 4.4 (3.5-5.1) mmol/L Chloride 102 (98-107) mmol/L Carbon Dioxide 26.6 (21.0-32.0) mmol/L BUN 14 (7.0-18.0) mg/dL Creatinine 1.1 (0.8-1.3) mg/dL Est Cr Clr Drug Dosing 101.77 mL/min Estimated GFR (MDRD) > 60.0 ml/min Glucose 91 (74-106) mg/dL Calcium 8.8 (8.5-10.1) mg/dL Total Bilirubin 0.3 (0.2-1.0) mg/dL AST 28 (15-37) IU/L ALT 44 (14-63) IU/L Alkaline Phosphatase 86 (46-116) U/L Total Protein 8.2 (6.4-8.2) g/dL Albumin 4.2 (3.4-5.0) g/dL Globulin 4.0 (2.6-4.0) g/dL Albumin/Globulin Ratio 1.0 (0.9-1.6) Urine Color YELLOW Urine Appearance CLEAR Urine pH 6.5 (5.0-8.0) Ur Specific [place] 1.020 (1.001-1.035) Urine Protein NEGATIVE (NEGATIVE) mg/dL Urine Glucose (UA) NEGATIVE (NEGATIVE) mg/dL Urine Ketones NEGATIVE (NEGATIVE) mg/dL Urine Occult Blood NEGATIVE (NEGATIVE) Urine Nitrite NEGATIVE (NEGATIVE) Urine Bilirubin NEGATIVE (NEGATIVE) Urine Urobilinogen 0.2 (<2.0) EU/dL Ur Leukocyte Esterase NEGATIVE (NEGATIVE) Meds: Medications Discontinued Medications Generic Name Dose Route Start Last Admin Trade Name Freq PRN Reason Stop Dose Admin Ibuprofen 800 mg 02/19/21 10:51 02/19/21 11:07 Ibuprofen 800 Mg Tab PO 02/19/21 10:52 800 mg ONETIME ONE Administration Departure - Departure Time of Disposition: 13:13 Disposition: Home, Self-Care 01 Clinical Impression: Testicular mass - Discharge Information Prescriptions: traMADol [Ultram] 50 mg PO Q4H PRN #15 tab PRN Reason: Pain Diclofenac Sodium [Voltaren] 75 mg PO BIDMEALS PRN #30 tab.cr PRN Reason: Pain Instructions: Urinary Tract Infection, Adult, [id number] Referrals: Ti Richter MD [Primary Care Provider] - Forms: ED Department Discharge Additional Instructions: The following information is given to patients seen in the emergency department who are being discharged to home. This information is to outline your options for follow-up care. We provide all patients seen in our emergency department with a follow-up referral. The need for follow-up, as well as the timing and circumstances, are variable depending upon the specifics of your emergency department visit. If you don't have a primary care physician on staff, we will provide you with a referral. We always advise you to contact your personal physician following an emergency department visit to inform them of the circumstance of the visit and for follow-up with them and/or the need for any referrals to a consulting specialist. The emergency department will also refer you to a specialist when appropriate. This referral assures that you have the opportunity for follow-up care with a specialist. All of these measure are taken in an effort to provide you with optimal care, which includes your follow-up. Under all circumstances we always encourage you to contact your private physician who remains a resource for coordinating your care. When calling for follow-up care, please make the office aware that this follow-up is from your recent emergency room visit. If for any reason you are refused follow-up, please contact the [facility] Emergency Department at and asked to speak to the emergency department charge nurse. [facility] [address] [place] [id number] [facility] [address] [place] [phone] Thank you for choosing the [facility] emergency department in [place] for your medical needs today. It was a pleasure caring for you. Today you were seen in the emergency department for testicular pain. 1. You were evaluated today on an emergent basis. Your lab work was normal. Your ultrasound showed 3 nonspecific masses in your right testicle. Dr Benavides, urologist, would like to see you March 01 at 1pm. 2. You can alternate Tylenol and ibuprofen as needed for pain and fever management. 3. If your symptoms should worsen, new symptoms develop or any of the signs and symptoms we discussed should arise please return to the emergency room or call 911 (if needed). Sepsis Event Note (ED) - Focused Exam Vital Signs: Vital Signs Temp Pulse Resp BP Pulse Ox 02/19/21 13:23 78 18 124/71 99 02/19/21 10:45 97.8 F 87 20 128/89 99 - My Orders Last 24 Hours: My Active Orders 02/19/21 10:50 CHLAMYDIA AND GONORRHEA BY TMA Stat - Assessment/Plan Last 24 Hours: My Active Orders 02/19/21 10:50 CHLAMYDIA AND GONORRHEA BY TMA Stat
[2021-02-19] MEDS ORDERED: Ibuprofen 800 MG Tab PO ONE (10:51)
[2021-02-19 11:37] LABS: BLOOD UREA NITROGEN,BUN 14 mg/dL (7.0-18.0); CARBON DIOXIDE,CO2 26.6 mmol/L (21.0-32.0); CHLORIDE,CL 102 mmol/L (98-107); GLUCOSE RANDOM 91 mg/dL (74-106); POTASSIUM,K 4.4 mmol/L (3.5-5.1); SODIUM,NA 138 mmol/L (136-148)
--- NOTE | 2021-02-19 13:04 | US ---
INDICATION: Right testicular pain. TECHNIQUE: Conventional two-dimensional grayscale ultrasound of the scrotum as well color-flow and pulsed Doppler of the testes. COMPARISON: None. FINDINGS: The right testis contains 3 rounded, mildly echogenic masses measuring up to 1.5 cm, 0.6 and 0.6 cm in maximal diameter. The testicular parenchyma is otherwise unremarkable. The right testis measures 4.6 x 3.4 x 2.2 cm and the left 4.5 x 3.0 x 2.3 cm. Color flow Doppler demonstrates normal testicular and epididymal blood flow. No epididymal abnormality, abnormal fluid collection or varicocele is demonstrated. IMPRESSION: Three nonspecific rounded, mildly echogenic right testicular masses measuring up to 1.5 cm, 0.6 cm and 0.6 cm in maximal diameter. Question unusual seminoma. Dictated by Nazario Perez MD @ Feb 19 2021 12:52PM Signed by Dr. Nazario Perez @ Feb 19 2021 1:03PM
--- NOTE | 2021-02-19 13:32 | US ---
EXAM DATE: 02/19/21 PATIENT'S AGE: 25 Patient: TEJAS DEVINE [facility] Study: US-Testicle -02/19/2021 12:13:17 PM Ordering Physician: ED Provider Temporary Final Report: INDICATION: Right testicular pain. TECHNIQUE: Conventional two-dimensional grayscale ultrasound of the scrotum as well color- flow and pulsed Doppler of the testes. COMPARISON: None. FINDINGS: The right testis contains 3 rounded, mildly echogenic masses measuring up to 1.5 cm, 0.6 and 0.6 cm in maximal diameter. The testicular parenchyma is otherwise unremarkable. The right testis measures 4.6 x 3.4 x 2.2 cm and the left 4.5 x 3.0 x 2.3 cm. Color flow Doppler demonstrates normal testicular and epididymal blood flow. No epididymal abnormality, abnormal fluid collection or varicocele is demonstrated. IMPRESSION: Three nonspecific rounded, mildly echogenic right testicular masses measuring up to 1.5 cm, 0.6 cm and 0.6 cm in maximal diameter. Question unusual seminoma. Dictated by Nazario Perez MD @ Feb 19 2021 12:52PM Signed by: Nazario Perez MD @02/19/2021 1:03:06 PM (Electronic Signature) Report Signed by Proxy. ISRAEL
[2021-02-20 12:02] LABS: C.TRACHOMATIS BY TMA Negative (Negative); N.GONORRHOEAE BY TMA Negative (Negative)
== END 2021-02-19 13:23 | disposition home or self-care (01) ==
LOC: MW.ED 10:36
DX: N50.89 Other specified disorders of the male genital organs (principal)
CPT/HCPCS: 36415; 76870; 80053; 81003; 85025; 87491; 87591; 93976; 99284; A9270; 99283

== ENCOUNTER 2021-06-11 10:58 | Emergency (ER) | payer OTHER ==
[2021-06-11] MEDS ORDERED: Ketorolac 30 MG/ML SDV IM ONE (11:31)
--- NOTE | 2021-06-11 11:35 | EDM.PDOC ---
ED HPI GENERAL MEDICAL PROBLEM - General Chief Complaint: Back Pain or Injury Stated Complaint: BACK PAIN Time Seen by Provider: 06/11/21 11:00 - History of Present Illness INITIAL COMMENTS - FREE TEXT/NARRATIVE: History of present illness: [] This patient works at [employer]. A group of boxes fell on his back and hit him in the right posterior chest in the lower chest and upper lumbar area 7 days ago. He suffered horrible pain with lifting and moving since he walks with a limp. The pain is severe. It makes him feel like he has pressure when he has to have a bowel movement. He has not lost control of his bowel or bladder. He has not lost sensation and motor function in his lower extremities. He has no saddle area anesthesia. The patient does not have trouble breathing although it hurts to take a deep breath. Review of systems: As per history of present illness and below otherwise all systems reviewed and negative. Past medical history: As per history of present illness and as reviewed below otherwise noncont ributory. Surgical history: As per history of present illness and as reviewed below otherwise noncontributory. Social history: No reported history of drug or alcohol abuse. Family history: As per history of present illness and as reviewed below otherwise noncontributory. Physical exam: Constitutional - well developed, well-nourished and in no acute distress HEENT - normocephalic, no evidence of trauma - external nose and mouth normal - no mass in neck and no JVD - mucosae moist EYES - full EOM, PERRL, no icterus - no evidence of inflammation, injection, or drainage Respiratory - No respiratory distress, equal bilateral expansion, lungs clear to auscultation and no abnormal lung sounds Cardiovascular - Regular Rhythm with S1 and S2 appreciated and no murmur, gallop or rub. GI - abdomen soft without distension or organomegaly - normal bowel sounds - no guard or rebound Musculoskeletal tenderness in the low posterior chest from the mid scapular to the posterior axillary line and tenderness along the right paraspinous muscles in the upper lumbar area. Straight leg raise does not cause radicular pain. no gross deformity of long bones or joints - no tenderness, swelling or edema Neurologic - Alert and oriented times four - CN II-XII grossly intact - motor sensory and coordination symmetrically normal Psychiatric - appropriate mood and affect with normal thought content Hematologic - No petechiae or purpura - mucosa appropriate color and sclera not pale - normal nail bed color and refill Integument - no rash or evidence of trauma - normal turgor Diagnostics: [] Therapeutics: [] Impression: [] Plan: [] Definitive disposition and diagnosis as appropriate pending reevaluation and review of above. bilateral lower back Pain Score (Numeric/FACES): 8 - Related Data Allergies Allergy/AdvReac Type Severity Reaction Status Date / Time No Known Allergies Allergy Verified 02/19/21 10:44 Home Meds: Home Meds Diclofenac Sodium [Voltaren] 75 mg PO BIDMEALS PRN #30 tab.cr 02/19/21 [Rx] Sertraline HCl [Zoloft] 50 mg PO DAILY 02/19/21 [History] traMADol [Ultram] 50 mg PO Q4H PRN #15 tab 02/19/21 [Rx] Acetaminophen/oxyCODONE [Percocet 325-5 MG] 1 - 2 tab PO Q4HR PRN #14 tab 06/11/21 [Rx] diazePAM [Valium] 5 mg PO TID PRN #15 tab 06/11/21 [Rx] methylPREDNISolone [Medrol Dose Pack] 4 mg PO DAILY #21 tab 06/11/21 [Rx] Past Medical History Cardiovascular History: Reports: None Respiratory History: Reports: None Gastrointestinal History: Reports: Irritable Bowel Syndrome Psychiatric History: Reports: Anxiety - Infectious Disease History Infectious Disease History: Reports: None - Past Surgical History HEENT Surgical History: Reports: Adenoidectomy, Tonsillectomy Social & Family History - Family History Family Medical History: No Pertinent Family History - Caffeine Use Caffeine Use: Reports: None ED ROS GENERAL - Review of Systems Review Of Systems: Comprehensive ROS is negative, except as noted in HPI. ED EXAM, GENERAL - Physical Exam Exam: See Below Free Text/Narrative:: My physical exam is in the HPI Course - Vital Signs Last Recorded V/S: Last Vital Signs Temp 36.3 C 06/11/21 11:16 Pulse 84 06/11/21 12:22 Resp 18 06/11/21 12:22 BP 121/72 06/11/21 12:22 Pulse Ox 98 06/11/21 12:22 - Orders/Labs/Meds Meds: Medications Discontinued Medications Generic Name Dose Route Start Last Admin Trade Name Freq PRN Reason Stop Dose Admin Ketorolac Tromethamine 30 mg 06/11/21 11:31 06/11/21 12:00 Ketorolac 30 Mg/Ml Sdv IM 06/11/21 11:32 30 mg ONETIME ONE Administration Departure - Departure Time of Disposition: 12:55 Disposition: Home, Self-Care 01 Condition: Good Clinical Impression: Back spasm, Back contusion - Discharge Information Prescriptions: methylPREDNISolone [Medrol Dose Pack] 4 mg PO DAILY #21 tab RX: Acetaminophen/oxyCODONE [Percocet 325-5 MG] 1 - 2 tab PO Q4HR PRN #14 tab PRN Reason: Pain (Severe 7-10) diazePAM [Valium] 5 mg PO TID PRN #15 tab PRN Reason: Muscle Spasm - Painful Instructions: Muscle Strain, [id number] Referrals: PCP,Unknown [Primary Care Provider] - Forms: ED Department Discharge Sepsis Event Note (ED) - Evaluation Sepsis Screening Result: No Definite Risk - Focused Exam Vital Signs: Vital Signs Temp Pulse Resp BP Pulse Ox 06/11/21 12:22 84 18 121/72 98 06/11/21 11:16 36.3 C 98 18 127/84 98
--- NOTE | 2021-06-11 12:30 | CR ---
Indication: Injury Comparison: Two-view chest April 27, 2020 Technique: PA and Lateral views chest Findings: There is no focal consolidation, effusion, or pneumothorax. The cardiomediastinal silhouette is within normal limits. The bony thorax is grossly intact. Impression: No acute cardiopulmonary abnormality. Dictated by Jarret Delgado MD @ 06/11/2021 12:28:[address] Jarret Delgado @ Jun 11 2021 12:28PM
--- NOTE | 2021-06-11 12:32 | CR ---
Indication: Injury Comparison: None available Technique: AP and lateral views lumbar spine were obtained Findings: The lumbar vertebral body heights are grossly maintained with mild straightening of the normal lumbar lordosis. There is no significant spondylolisthesis. There is trace retrolisthesis of L5 on S1. The joint spaces are grossly preserved. There is no evidence of displaced fracture. The partially visualized bowel gas pattern is nonobstructive. Impression: Mild spasmodic straightening of the normal lumbar lordosis without evidence of displaced fracture. Dictated by Jarret Delgado MD @ 06/11/2021 12:30:[address] Jarret Delgado @ Jun 11 2021 12:30PM
== END 2021-06-11 13:43 | disposition home or self-care (01) ==
LOC: MW.ED 10:58
DX: S30.0XXA Contusion of lower back and pelvis, initial encounter (principal); X50.0XXA Overexertion from strenuous movement or load, initial encounter
CPT/HCPCS: 71046; 72100; 96372; 99283; J1885

== ENCOUNTER 2021-07-28 23:51 | Emergency (ER) | payer MEDICAID, OTHER ==
[2021-07-29] MEDS ORDERED: Ketorolac 15 MG/ML SDV IM STA (00:27)
[2021-07-29] MEDS ORDERED: traMADol 50 MG Tab PO ONE (00:27)
[2021-07-29] MEDS ORDERED: Ketorolac 60 MG/2 ML SDV IM ONE (00:40)
--- NOTE | 2021-07-29 01:18 | EDM.PDOC ---
ED HPI GENERAL MEDICAL PROBLEM - General Chief Complaint: Upper Extremity Injury/Pain Stated Complaint: HURT HAND Time Seen by Provider: 07/29/21 00:20 - History of Present Illness INITIAL COMMENTS - FREE TEXT/NARRATIVE: HISTORY AND PHYSICAL: History of present illness: This is a 26-year-old gentleman who presents ER today requesting assistance with pain meds secondary to an injury to his left thumb. Patient reports that he hyperextended his thumb while he was at work where it touched his forearm. [facility] Patient was placed in a splint with instruction to follow-up. Patient presents ER today requesting assistance with pain as the ibuprofen is not helping. Patient denies any recent fevers, shakes, chills, nausea, vomiting, diarrhea. Review of systems: As per history of present illness and below otherwise all systems reviewed and negative. Past medical history: As per history of present illness and as reviewed below otherwise noncontributor y. Surgical history: As per history of present illness and as reviewed below otherwise noncontributory. Social history: No reported history of drug abuse. Family history: As per history of present illness and as reviewed below otherwise noncontributory. Physical exam: This patient was seen and evaluated during the 2019 SARS-CoV-2 novel coronavirus pandemic period. Community viral transmission is ongoing at time of this encounter and the emergency department is operating under pandemic response procedures. Constitutional: Patient is oriented to person, place, and time. Appears well-d eveloped and well-nourished. No distress. HEENT: Moist mucous membranes Head: Normocephalic and atraumatic Eyes: Right eye exhibits no discharge. Left eye exhibits no discharge. No scleral icterus Neck: Normal range of motion. No tracheal deviation present. Cardiovascular: Normal rate and regular rhythm. Pulmonary: Effort normal, no respiratory distress. Abdominal: No distention Musculoskeletal: Normal range of motion Neurologic: Alert and oriented to person, place and time. Skin: [place], warm and dry. Psychiatric: Normal mood and affect. Behavior is normal. Judgment and thought content normal. Nursing note and vital signs have been reviewed Patient's ER physical exam is significant for tenderness palpation to his left thumb over the thenar thenar eminence and over his first phalanx. Patient is neurovascular intact. There is a small amount of soft tissue swelling around his wrist. Diagnostics: X-ray left hand: No acute fracture or dislocation identified. Therapeutics: Toradol 60 IM , Tramadol 50 p.o. Assessment and plan: 26-year-old gentleman who presents ER today secondary to pain and discomfort to his left thumb. Patient has been seen by an outlying ER for this and has follow-up scheduled. Patient will need to follow-up with hand surgery at [facility] for further evaluation and treatment of his pain site injury. I will discharge patient with a prescription for Ultram until he is able to follow-up with a hand specialist. Patient will be instructed to continue wearing his splint that was provided from him from the prior ED visit. I will also give the patient a phone number for the Workmen's Comp. clinic in case he should change his mind is right now he does not want him [facility] Reassessment at the time of disposition demonstrates that the patient is in no acute distress. The patient has remained stable throughout the entire ED visit and is without objective evidence for acute process requiring urgent interven tion or hospitalization. The patient is stable for discharge, counseling is provided as documented above, discussed symptomatic treatment and specific conditions for return. I have spoken with the patient/caregiver and discussed todays findings, in addition to providing specific details for the plan of care. Questions are answered and there is agreement with the plan. Definitive disposition and diagnosis as appropriate pending reevaluation and review of above. Left Hand Pain Score (Numeric/FACES): 10 - Related Data Allergies Allergy/AdvReac Type Severity Reaction Status Date / Time No Known Allergies Allergy Verified 02/19/21 10:44 Home Meds: Home Meds Diclofenac Sodium [Voltaren] 75 mg PO BIDMEALS PRN #30 tab.cr 02/19/21 [Rx] Sertraline HCl [Zoloft] 50 mg PO DAILY 02/19/21 [History] traMADol [Ultram] 50 mg PO Q4H PRN #15 tab 02/19/21 [Rx] Acetaminophen/oxyCODONE [Percocet 325-5 MG] 1 - 2 tab PO Q4HR PRN #14 tab 06/11/21 [Rx] diazePAM [Valium] 5 mg PO TID PRN #15 tab 06/11/21 [Rx] methylPREDNISolone [Medrol Dose Pack] 4 mg PO DAILY #21 tab 06/11/21 [Rx] Past Medical History - Past Health History Medical/Surgical History: Denies Medical/Surgical History Cardiovascular History: Reports: None Respiratory History: Reports: None Gastrointestinal History: Reports: Irritable Bowel Syndrome Genitourinary History: Reports: None Musculoskeletal History: Reports: None Neurological History: Reports: None Psychiatric History: Reports: Anxiety Endocrine/Metabolic History: Reports: None Hematologic History: Reports: None Immunologic History: Reports: None Oncologic (Cancer) History: Reports: None Dermatologic History: Reports: None - Infectious Disease History Infectious Disease History: Reports: None - Past Surgical History HEENT Surgical History: Reports: Adenoidectomy, Tonsillectomy Social & Family History - Family History Family Medical History: No Pertinent Family History - Caffeine Use Caffeine Use: Reports: None Review of Systems - Review of Systems Review Of Systems: See Below ED EXAM, GENERAL - Physical Exam Exam: See Below Course - Vital Signs Last Recorded V/S: Last Vital Signs Temp 98.6 F 07/29/21 00:06 Pulse 81 07/29/21 00:06 Resp 18 07/29/21 00:06 BP 142/84 H 07/29/21 00:06 Pulse Ox 99 07/29/21 00:06 - Orders/Labs/Meds Orders: Active Orders 24 hr Category Date Time Status Hand Comp Min 3V Lt [CR] Stat Exams 07/29/21 00:20 Taken Meds: Medications Discontinued Medications Generic Name Dose Route Start Last Admin Trade Name Freq PRN Reason Stop Dose Admin Ketorolac Tromethamine 60 mg 07/29/21 00:27 07/29/21 00:41 Ketorolac 15 Mg/Ml Sdv IM 07/29/21 00:28 Not Given Q6H STA Ketorolac Tromethamine 60 mg 07/29/21 00:40 07/29/21 00:43 Ketorolac 60 Mg/2 Ml Sdv IM 07/29/21 00:41 60 mg ONETIME ONE Administration Tramadol HCl 50 mg 07/29/21 00:27 07/29/21 00:40 Tramadol 50 Mg Tab PO 07/29/21 00:28 50 mg ONETIME ONE Administration Departure - Departure Time of Disposition: 01:16 Disposition: Home, Self-Care 01 Condition: Good Clinical Impression: Left thumb sprain Qualifiers: Encounter type: subsequent encounter Sprain of finger site: metacarpophalangeal joint Qualified Code(s): S63.642D - Sprain of metacarpophalangeal joint of left thumb, subsequent encounter - Discharge Information Instructions: Thumb Sprain Referrals: Ti Richter MD [Primary Care Provider] - Additional Instructions: You were seen and evaluated in ER today to assist you with pain secondary to the injury that you had to your thumb. Please make an appointment to follow-up with hand specialist in [facility]. I will also give you the phone number for [facility] Workmen's Comp. clinic to see them if you should change her mind. [facility] at [address] [address] You will be given a prescription for Ultram to take to help you with your pain. Please keep the splint on to assist with healing and comfort. The following information is given to patients seen in the emergency department who are being discharged to home. This information is to outline your options for follow-up care. We provide all patients seen in our emergency department wit h a follow-up referral. The need for follow-up, as well as the timing and circumstances, are variable depending upon the specifics of your emergency department visit. If you don't have a primary care physician on staff, we will provide you with a referral. We always advise you to contact your personal physician following an emergency department visit to inform them of the circumstance of the visit and for follow-up with them and/or the need for any referrals to a consulting specialist. The emergency department will also refer you to a specialist when appropriate. This referral assures that you have the opportunity for follow-up care with a specialist. All of these measure are taken in an effort to provide you with optimal care, which includes your follow-up. Under all circumstances we always encourage you to contact your private physician who remains a resource for coordinating your care. When calling for follow-up care, please make the office aware that this follow-up is from your recent emergency room visit. If for any reason you are refused follow-up, please contact the [facility] Emergency Department at and asked to speak to the emergency department charge nurse. [facility] - [facility] [address] [place] [address] [facility] [address] [place] [id number] Sepsis Event Note (ED) - Focused Exam Vital Signs: Vital Signs Temp Pulse Resp BP Pulse Ox 07/29/21 00:06 98.6 F 81 18 142/84 H 99 - My Orders Last 24 Hours: My Active Orders 07/29/21 00:20 Hand Comp Min 3V Lt [CR] Stat - Assessment/Plan Last 24 Hours: My Active Orders 07/29/21 00:20 Hand Comp Min 3V Lt [CR] Stat
--- NOTE | 2021-07-29 01:58 | CR ---
HISTORY: Hand pain COMPARISON: None available. FINDINGS: The left hand is examined with PA, lateral, and oblique views. There is no sign of fracture or dislocation. The soft tissues are normal in appearance without sign of radio-opaque foreign body. No degenerative disease is seen. IMPRESSION: Normal left hand. Dictated by Carlos Tran MD @ 07/29/2021 1:57:15 AM (Electronically Signed)
== END 2021-07-29 01:27 | disposition home or self-care (01) ==
LOC: MW.ED 23:51
DX: S63.642A Sprain of metacarpophalangeal joint of left thumb, initial encounter (principal); X50.0XXA Overexertion from strenuous movement or load, initial encounter; Y99.0 Civilian activity done for income or pay
CPT/HCPCS: 73130; 96372; 99283; A9270; J1885

== ENCOUNTER 2022-01-18 08:47 | Emergency (ER) | payer MEDICAID, OTHER ==
[2022-01-18 09:49] LABS: BLOOD UREA NITROGEN,BUN 10 mg/dL (7.0-18.0); CARBON DIOXIDE,CO2 23.7 mmol/L (21.0-32.0); CHLORIDE,CL 105 mmol/L (98-107); GLUCOSE RANDOM 93 mg/dL (74-106); POTASSIUM,K 3.7 mmol/L (3.5-5.1); SODIUM,NA 140 mmol/L (136-148)
[2022-01-18] MEDS ORDERED: Dexamethasone 10 MG/ML SDV IVPUSH ONE (10:40)
== END 2022-01-18 11:01 | disposition home or self-care (01) ==
LOC: MW.ED 08:47
DX: R09.1 Pleurisy (principal)
CPT/HCPCS: 36415; 71045; 80053; 83880; 84484; 85025; 85652; 87804; 93005; 96374; 99284; J1100

== ENCOUNTER 2022-01-21 09:52 | Emergency (ER) | payer MEDICAID ==
[2022-01-21] MEDS: Ketorolac 30 MG/ML SDV IM STA (10:23)
[2022-01-21] MEDS: Cyclobenzaprine 5 MG Tab PO SCH (10:29)
== END 2022-01-21 12:05 | disposition home or self-care (01) ==
LOC: MW.ED 09:52
DX: M54.6 Pain in thoracic spine (principal)
CPT/HCPCS: 93005; 96372; 99283; A9270; J1885

== ENCOUNTER 2022-04-23 10:45 | Emergency (ER) | payer MEDICAID | END 2022-04-23 11:21 | disposition home or self-care (01) | LOC: MW.ED 10:45 | DX: H66.002 Acute suppurative otitis media without spontaneous rupture of ear drum, left ear (principal); Z86.16 Personal history of COVID-19; Z79.899 Other long term (current) drug therapy | CPT/HCPCS: 99282; 99283 ==

== ENCOUNTER 2022-04-24 11:00 | Emergency (ER) | payer MEDICAID ==
[2022-04-24] MEDS: Acetaminophen/Butalbital/Caffeine 325-50-40 MG Tab PO ONE (12:28)
[2022-04-24] MEDS: Metoclopramide 10 MG Tab PO ONE (12:28)
[2022-04-24] MEDS: Ibuprofen 600 MG Tab PO ONE (12:28)
[2022-04-24] MEDS: diphenhydrAMINE 50 MG Cap PO ONE (12:29)
[2022-04-24] MEDS: Metoclopramide 10 MG/2 ML SDV IVPUSH ONE (12:35)
[2022-04-24] MEDS: Sodium Chloride 0.9% 1,000 ML IV ONE (12:35)
[2022-04-24] MEDS: Ketorolac 30 MG/ML SDV IVPUSH ONE (12:35)
[2022-04-24] MEDS: diphenhydrAMINE 50 MG/ML SDV IVPUSH ONE (12:35)
[2022-04-24 13:01] LABS: CORONAVIRUS COVID-19 NAA NEGATIVE (NEGATIVE); INFLUENZA A NAA NEGATIVE (NEGATIVE); INFLUENZA B NAA NEGATIVE (NEGATIVE)
== END 2022-04-24 13:30 | disposition home or self-care (01) ==
LOC: MW.ED 11:00
DX: G43.909 Migraine, unspecified, not intractable, without status migrainosus (principal); Z86.16 Personal history of COVID-19; Z20.822 Contact with and (suspected) exposure to COVID-19
CPT/HCPCS: 0240U; 70450; 99284; A9270

== ENCOUNTER 2022-05-01 15:52 | Emergency (ER) | payer MEDICAID, OTHER | END 2022-05-01 18:48 | disposition home or self-care (01) | LOC: MW.ED 15:52 | DX: M54.6 Pain in thoracic spine (principal); F17.210 Nicotine dependence, cigarettes, uncomplicated; Z86.16 Personal history of COVID-19 | CPT/HCPCS: 72072; 72072-26; 99283-25 ==

== ENCOUNTER 2022-08-01 05:28 | Emergency (ER) | payer OTHER ==
[2022-08-01] MEDS ORDERED: Metoclopramide 10 MG Tab PO ONE (06:06)
[2022-08-01] MEDS ORDERED: Ibuprofen 400 MG Tab PO ONE (06:06)
[2022-08-01] MEDS ORDERED: Acetaminophen 325 MG Tab PO ONE (06:06)
[2022-08-01] MEDS ORDERED: hydrOXYzine HCl 25 MG Tab PO ONE (06:07)
== END 2022-08-01 10:57 | disposition home or self-care (01) ==
LOC: MW.ED 05:28
DX: R51.9 Headache, unspecified (principal); Z79.899 Other long term (current) drug therapy; Z86.16 Personal history of COVID-19; Z20.822 Contact with and (suspected) exposure to COVID-19
CPT/HCPCS: 70450; 87635; 99284; A9270; U0002

== ENCOUNTER 2022-09-18 21:06 | Emergency (ER) | payer BC, OTHER ==
[2022-09-18 21:56] LABS: CARBON DIOXIDE,CO2 25.6 mmol/L (21.0-32.0); POTASSIUM,K 3.7 mmol/L (3.5-5.1)
== END 2022-09-19 | disposition home or self-care (01) ==
LOC: MW.ED 21:06
DX: J70.5 Respiratory conditions due to smoke inhalation (principal); Z79.899 Other long term (current) drug therapy
CPT/HCPCS: 36415; 71045; 71045-26; 80048; 84484; 85025; 93005; 93010; 99284; 99285

== ENCOUNTER 2022-11-26 04:18 | Emergency (ER) | payer BC, MEDICAID ==
[2022-11-26] MEDS ORDERED: Ibuprofen 600 MG Tab PO ONE (04:35)
== END 2022-11-26 05:29 | disposition home or self-care (01) ==
LOC: MW.ED 04:18
DX: S90.32XA Contusion of left foot, initial encounter (principal); Z86.16 Personal history of COVID-19; W22.09XA Striking against other stationary object, initial encounter
CPT/HCPCS: 73620; 99283; A9270

== ENCOUNTER 2023-04-26 14:20 | Emergency (ER) | payer MEDICAID ==
[2023-04-26] MEDS ORDERED: Ibuprofen 800 MG Tab PO STA (15:46)
[2023-04-26] MEDS ORDERED: Acetaminophen 500 MG Tab PO STA (15:46)
== END 2023-04-26 16:45 | disposition home or self-care (01) ==
LOC: MW.ED 14:20
DX: M25.561 Pain in right knee (principal); F17.210 Nicotine dependence, cigarettes, uncomplicated; Z86.16 Personal history of COVID-19
CPT/HCPCS: 73562; 93971; 99284; A9270

== ENCOUNTER 2023-06-25 00:41 | Emergency (ER) | payer MEDICAID ==
[2023-06-25] MEDS ORDERED: Ibuprofen 600 MG Tab PO ONE (01:36)
[2023-06-25] MEDS ORDERED: Meclizine 25 MG Tab PO ONE (01:37)
[2023-06-25] MEDS ORDERED: Ondansetron 4 MG Tab.DIS PO ONE (01:37)
== END 2023-06-25 02:00 | disposition home or self-care (01) ==
LOC: MW.ED 00:41
DX: K04.7 Periapical abscess without sinus (principal); Z88.8 Allergy status to other drugs, medicaments and biological substances; Z86.16 Personal history of COVID-19
CPT/HCPCS: 99283; A9270

== ENCOUNTER 2023-08-04 16:06 | Emergency (ER) | payer MEDICAID ==
[2023-08-04] MEDS ORDERED: Diphtheria,Pertussis(Acell),Tetanus Vaccine 0.5 ML Syringe IM ONE (17:26)
[2023-08-04] MEDS ORDERED: Amoxicillin/Clavulanate K 875-125 MG Tab PO ONE (17:26)
== END 2023-08-04 17:41 | disposition home or self-care (01) ==
LOC: MW.ED 16:06
DX: S41.151A Open bite of right upper arm, initial encounter (principal); Z88.8 Allergy status to other drugs, medicaments and biological substances; Z23 Encounter for immunization; Z86.16 Personal history of COVID-19; Z72.0 Tobacco use; W54.0XXA Bitten by dog, initial encounter
CPT/HCPCS: 90471; 90715; 99283; A9270

== ENCOUNTER 2023-10-25 06:32 | Emergency (ER) | payer MEDICAID | END 2023-10-25 07:22 | disposition home or self-care (01) | LOC: MW.ED 06:32 | DX: K08.89 Other specified disorders of teeth and supporting structures (principal); Z86.16 Personal history of COVID-19; Z79.899 Other long term (current) drug therapy; Z88.8 Allergy status to other drugs, medicaments and biological substances | CPT/HCPCS: 99282; 99283 ==

== ENCOUNTER 2023-10-25 15:37 | Emergency (ER) | payer MEDICAID ==
[2023-10-25] MEDS ORDERED: Morphine 4 MG/ML Syringe IM STA (17:03)
== END 2023-10-25 17:18 | disposition home or self-care (01) ==
LOC: MW.ED 15:37
DX: K04.7 Periapical abscess without sinus (principal); F17.210 Nicotine dependence, cigarettes, uncomplicated; Z86.16 Personal history of COVID-19; Z88.8 Allergy status to other drugs, medicaments and biological substances; Z79.899 Other long term (current) drug therapy
CPT/HCPCS: 96372; 99282; J2270; 99283

== ENCOUNTER 2023-11-15 00:40 | Emergency (ER) | payer MEDICAID ==
[2023-11-15 00:59] LABS: BASOPHILS ABSOLUTE AUTO 0.03 K/uL (0.00-0.20); BASOPHILS PERCENT AUTO 0.3 % (0.0-1.0); EOSINOPHILS ABSOLUTE AUTO 0.13 K/uL (0.00-0.45); EOSINOPHILS PERCENT AUTO 1.1 % (0.0-6.0); HEMATOCRIT 43.2 % (42.0-52.0); IMMATURE GRAN ABSOLUTE AUTO 0.03 K/uL (0.00-0.05); IMMATURE GRAN PERCENT AUTO 0.3 % (0.0-0.4); LYMPHOCYTES ABSOLUTE AUTO 3.22 K/uL (1.00-4.80); LYMPHOCYTES PERCENT AUTO 27.4 % (24.0-44.0); MEAN CORPUSCULAR HEMOGLOBIN 30.9 pg (28.0-32.0); MEAN CORPUSCULAR HGB CONC 34.7 g/dL (32.0-36.0); MEAN CORPUSCULAR VOLUME 88.9 fL (83.0-99.0); MONOCYTES ABSOLUTE AUTO 0.93 K/uL (0.00-0.80); MONOCYTES PERCENT AUTO 7.9 % (0.0-8.0); PLATELET COUNT,PLT 279 K/uL (150-400); RED BLOOD CELL COUNT 4.86 M/uL (4.52-5.90); WHITE BLOOD CELL COUNT,WBC 11.74 K/uL (3.9-11.3)
[2023-11-15 01:17] LABS: A/G RATIO 0.9 (0.9-1.6); ALANINE AMINOTRANSFERASE,ALT 45 IU/L (14-63); ALKALINE PHOSPHATASE 100 U/L (46-116); ASPARTATE AMNIOTRANSFERASE,AST 24 IU/L (15-37); BILIRUBIN TOTAL 0.3 mg/dL (0.2-1.0); BLOOD UREA NITROGEN,BUN 15 mg/dL (7.0-18.0); CALCIUM 9.1 mg/dL (8.5-10.1); CARBON DIOXIDE,CO2 26.4 mmol/L (21.0-32.0); CHLORIDE,CL 103 mmol/L (98-107); CREATININE 1.8 mg/dL (0.8-1.3); EST CRCL DRUG DOSING (CG) 60.55 mL/min; GLUCOSE RANDOM 111 mg/dL (74-106); POTASSIUM,K 4.2 mmol/L (3.5-5.1); PROTEIN TOTAL,TP 8.3 g/dL (6.4-8.2); SODIUM,NA 141 mmol/L (136-148)
[2023-11-15 01:28] LABS: ESTIMATED GFR 52 mL/min (>60)
[2023-11-15] MEDS ORDERED: Sodium Chloride 0.9% 1,000 ML IV ONE (01:57)
== END 2023-11-15 03:00 | disposition home or self-care (01) ==
LOC: MW.ED 00:40
DX: R10.30 Lower abdominal pain, unspecified (principal); R07.9 Chest pain, unspecified; R42 Dizziness and giddiness; Z88.8 Allergy status to other drugs, medicaments and biological substances; Z86.16 Personal history of COVID-19
CPT/HCPCS: 36415; 71045; 74018; 80053; 83690; 84484; 85025; 93005; 96360; 99285; J7030

== ENCOUNTER 2025-01-29 03:40 | Emergency (ER) | payer OTHER | END 2025-01-29 04:50 | disposition left against medical advice (07) | LOC: MW.ED 03:40 | DX: R05.9 Cough, unspecified (principal); F17.210 Nicotine dependence, cigarettes, uncomplicated; Z86.16 Personal history of COVID-19; Z88.8 Allergy status to other drugs, medicaments and biological substances; Z79.899 Other long term (current) drug therapy | CPT/HCPCS: 87428-QW; 93005; 99283 ==

== ENCOUNTER 2025-02-22 01:58 | Emergency (ER) | payer OTHER ==
[2025-02-22] MEDS: Cyclobenzaprine 10 MG Tab PO ONE (02:25)
[2025-02-22] MEDS: Acetaminophen 325 MG Tab PO ONE (02:26)
[2025-02-22] MEDS: Sodium Chloride 0.9% 1,000 ML IV ONE (02:31)
[2025-02-22 02:34] LABS: BASOPHILS ABSOLUTE AUTO 0.05 K/uL (0.00-0.20); BASOPHILS PERCENT AUTO 0.4 % (0.0-1.0); EOSINOPHILS ABSOLUTE AUTO 0.52 K/uL (0.00-0.45); EOSINOPHILS PERCENT AUTO 4.3 % (0.0-6.0); HEMATOCRIT 42.1 % (42.0-52.0); HEMOGLOBIN 14.7 g/dL (14.0-18.0); IMMATURE GRAN ABSOLUTE AUTO 0.05 K/uL (0.00-0.05); IMMATURE GRAN PERCENT AUTO 0.4 % (0.0-0.4); LYMPHOCYTES ABSOLUTE AUTO 4.24 K/uL (1.00-4.80); LYMPHOCYTES PERCENT AUTO 35.4 % (24.0-44.0); MEAN CORPUSCULAR HEMOGLOBIN 30.8 pg (28.0-32.0); MEAN CORPUSCULAR HGB CONC 34.9 g/dL (32.0-36.0); MEAN CORPUSCULAR VOLUME 88.1 fL (83.0-99.0); MEAN PLATELET VOLUME 10.5 fL (9.4-12.4); MONOCYTES ABSOLUTE AUTO 0.96 K/uL (0.00-0.80); NEUTROPHILS ABSOLUTE AUTO 6.16 K/uL (1.80-7.70); NEUTROPHILS PERCENT AUTO 51.5 % (41.0-71.0); PLATELET COUNT,PLT 260 K/uL (150-400); RED BLOOD CELL COUNT 4.78 M/uL (4.52-5.90); WHITE BLOOD CELL COUNT,WBC 11.98 K/uL (3.9-11.3)
[2025-02-22 03:16] LABS: CALCIUM 9.2 mg/dL (8.5-10.1); CARBON DIOXIDE,CO2 20.1 mmol/L (21.0-32.0); CREATININE 1.2 mg/dL (0.8-1.3); EST CRCL DRUG DOSING (CG) 90.01 mL/min; POTASSIUM,K 3.8 mmol/L (3.5-5.1)
== END 2025-02-22 04:07 | disposition home or self-care (01) ==
LOC: MW.ED 01:58
DX: R19.7 Diarrhea, unspecified (principal); R55 Syncope and collapse; F17.210 Nicotine dependence, cigarettes, uncomplicated; Z88.8 Allergy status to other drugs, medicaments and biological substances
CPT/HCPCS: 36415; 72100; 80048; 85025; 93005; 96360; 99284; A9270; J7030; 93010; 99283